=== PATIENT | female | born 2000 | race Caucasian/White ===

== ENCOUNTER 2023-06-08 17:41 | Emergency (ER) | payer SELFPAY ==
[~2023-06-08] VITALS: Ht 167.6 cm; Wt 65.8 kg
[2023-06-08 18:00] VITALS: BP 148/69
== END 2023-06-08 19:43 | disposition home or self-care (01) ==
LOC: ER 17:41
DX: S52.501A Unspecified fracture of the lower end of right radius, initial encounter for closed fracture (principal); W18.09XA Striking against other object with subsequent fall, initial encounter; Z88.2 Allergy status to sulfonamides
CPT/HCPCS: 29105; 73060; 73110; 99283-25; A9270